=== PATIENT | female | born 1980 | race Caucasian/White ===

== ENCOUNTER 2016-11-19 16:32 | Emergency (ER) | payer OTHER ==
[~2016-11-19] VITALS: Ht 160 cm; Wt 66.7 kg
[~2016-11-19 16:32] MED LIST: NORCO 325 MG-51 TAB PO
[2016-11-19 16:35] VITALS: BP 129/84
[2016-11-19] MEDS ORDERED: HYDROCODON-ACE1 EAC2 PO (17:27)
[2016-11-19] MEDS ORDERED: BACTRIM DS TAB1 EACH PO (17:27)
--- NOTE | 2016-11-19 17:28 | ED GI/GU/ABDOMINAL COMPLAINT ---
History of Present Illness General Chief Complaint: General Adult Stated Complaint: PT IS HAVING BLADDER PAIN Source: patient Exam Limitations: no limitations Vital Signs & Intake/Output Vital Signs & Intake/Output Vital Signs Date Time Temp Pulse Resp B/P Pulse O2 O2 Flow FiO2 Ox Delivery Rate 11/19 1635 97.2 90 18 129/84 98 Room Air Allergies Coded Allergies: NO KNOWN ALLERGIES (02/06/15) Reconcile Medications Acetaminophen/Hydrocodone Bi ([place] 325 MG-5 MG) 1 TAB TAB 1 TAB PO Q6HR PRN PAIN Hydrocodone/Acetaminophen (Hydrocodon-Acetaminophen 5-325) 5 MG-325 MG TABLET 1-2 TAB PO Q4-6 PRN PRN pain Sulfamethoxazole/Trimethoprim (Bactrim Ds Tablet) 800 MG-160 MG TABLET 1 TAB PO BID uti Triage Note: PT COMPLAINS OF LOW PELVIC BLADDER PAIN AND PAIN WITH URINATION X 2 DAYS Triage Nurses Notes Reviewed? yes ? n Is pt currently ? No Onset: Abrupt Duration: day(s): (few), constant, continues in ED Timing: recent history Quality/Severity: pressure Radiation: no radiation Activities at Onset: none Sexually Active: No No Modifying Factors: none HPI: 36-year-old female comes into emergency room with pressure over her lower abdomen as well as increased frequency of urination. Denies any burning. Patient reports that she's had some malaise. Denies any back pain or vomiting. Some urgency. Denies any decrease in appetite. Symptoms begun on for the past 3 days. Patient reports that she has not been drinking a lot of water recently. (ASHWINI CHAVARRIA) Past History Travel History Traveled to [place] past 21 day No Medical History Any Pertinent Medical History? 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 No (ASHWINI CHAVARRIA) Review of Systems Review of Systems Constitutional: Reports: no symptoms. EENTM: Reports: no symptoms. Respiratory: Reports: no symptoms. Cardiovascular: Reports: no symptoms. GI: Reports: no symptoms. Genitourinary: Reports: see HPI. Musculoskeletal: Reports: no symptoms. Skin: Reports: no symptoms. Neurological/Psychological: Reports: no symptoms. Hematologic/Endocrine: Reports: no symptoms. Immunologic/Allergic: Reports: no symptoms. All Other Systems: Reviewed and Negative (ASHWINI CHAVARRIA) Physical Exam Physical Exam General Appearance: well developed/nourished, no apparent distress, alert Head: atraumatic, normal appearance Eyes: Bilateral: normal appearance. Ears, Nose, Throat, Mouth: hearing grossly normal, moist mucous membrane Neck: normal inspection, full range of motion Respiratory: normal breath sounds, no respiratory distress Cardiovascular: regular rate/rhythm Gastrointestinal: soft, suprapbic pressure Back: normal inspection Extremities: normal range of motion Neurologic/Psych: awake, alert, oriented x 3, normal gait, normal mood/affect Skin: intact, normal color Core Measures ACS in differential dx? No Severe Sepsis Present: No Septic Shock Present: No (ASHWINI CHAVARRIA) Progress Differential Diagnosis: appendicitis, colon cancer, cholecystitis, ectopic , gastritis, kidney stone, ovarian cyst, ovarian torsion, pancreatitis, PID/cervicitis, peptic ulcer, PUD/GERD, perforated viscous, threatened AB, UTI/ pyelo Plan of Care: Orders Procedure Date/time Status URINE 11/19 1637 Complete URINALYSIS 11/19 1637 Complete Laboratory Tests 11/19/16 1640: Urine Color ORANG H, Urine Clarity HAZY H, Urine pH 6.0, Ur Specific [place] 1.025, Urine Bilirubin POS@ICTO H, Ur Microscopic SEDIMENT EXAMINED, Urine RBC 50-75 H, Urine WBC > 75 H, Ur Epithelial Cells RARE, Urine Bacteria FEW H, Urine Hemoglobin LARGE H, Urine Glucose 100 H, Urine Test NEGATIVE Initial ED EKG: none Comments: 11/19/2016 5:46:11 PM Patient clinically looks well. Nontoxic-appearing. In no apparent distress. Resting comfortably in room. No evidence of pyelonephritis. Patient has symptoms of lung, kidney UTI. Started on Bactrim. Continue to use Pyridium as needed. Return if any fever vomiting back pain or right lower quadrant pain. Negative McBurney's point on exam. No suspicion for appendicitis at this time. (ASHWINI CHAVARRIA) Departure Departure Disposition: HOME OR SELF CARE Condition: Stable Clinical Impression Primary Impression: UTI (urinary tract infection) Referrals: TANIA BARNARD,ANGIE Singh (PCP/Family) Additional Instructions: Take Bactrim and Vicodin as prescribed. Rest. Drink plenty of fluids. Return if any concerns worsening symptoms. Please go over all results of today's visit with your primary care doctor. Contact your primary care doctor to let them know you were here in the emergency room. There may be nonspecific findings which may not be related to your visit today here in the emergency room but may require further evaluation and chronic monitoring by your primary care doctor. If you had a laceration today the chance of foreign body always remains. You should follow-up with your primary care doctor for recheck in 3-5 days for a wound check. If you had an x-ray done there is a chance that a fracture could have been missed on initial read and you should follow-up with your primary care doctor for repeat x-rays if symptoms persist. If your blood pressure was elevated here in the emergency room please have rechecked by her primary care doctor within the next 48 hours by your primary care doctor. If you were prescribed a narcotic here in the emergency room or any type of controlled substances you're not allowed to drive while taking this medication or operate any type of heavy machinery. Narcotics can make you feel lightheaded dizziness nausea and can cause constipation. You may need to pick pack worker a stool softener. Thank you for choosing [facility] emergency room. Please return to the emergency room immediately if you have any other concerns worsening of symptoms. Departure Forms: Customer Survey General Discharge Information Prescriptions: Current Visit Scripts Sulfamethoxazole/Trimethoprim (Bactrim Ds Tablet) 1 TAB PO BID #14 TAB Hydrocodone/Acetaminophen (Hydrocodon-Acetaminophen 5-325) 1-2 TAB PO Q4-6 PRN PRN pain #15 TAB (ASHWINI CHAVARRIA) PA/ICU TECH Co-Sign Statement Statement: ED Attending supervision documentation- [] I saw and evaluated the patient. I have also reviewed all the pertinent lab results and diagnostic results. I agree with the findings and the plan of care as documented in the PA's/ICU TECH's documentation. x I have reviewed the ED Record and agree with the PA's/ICU TECH's documentation. [] Additions or exceptions (if any) to the PAs/ICU TECH's note and plan are summarized below: [] (IFEOMA BARNARD,WALTER)
== END 2016-11-19 17:34 ==
LOC: ERH 16:32
DX: N39.0 Urinary tract infection, site not specified (principal)
CPT/HCPCS: 81001; 81025

== ENCOUNTER → 2016-12-20 | Day surgery (SDC) | payer OTHER ==
[~2016-12-20] VITALS: Ht 160 cm; Wt 66.2 kg
[~2016-12-20] MED LIST changes: +BACTRIM DS TAB1 EACH PO; +HYDROCODON-ACE1 EAC2 PO
--- NOTE | 2016-12-20 13:53 | History & Physical Pre-Op ---
General Information and HPI History of Present Illness: 36yo with Mirena IUD unable to remove in office admitted for D&C hysteroscopy and IUD removal and insertion of Liletta IUD. Allergies/Medications Allergies: Coded Allergies: No Known Allergies (12/20/16) Home Med list Acetaminophen/Hydrocodone Bi ([place] 325 MG-5 MG) 1 TAB TAB 1 TAB PO Q6HR PRN PAIN Hydrocodone/Acetaminophen (Hydrocodon-Acetaminophen 5-325) 5 MG-325 MG TABLET 1-2 TAB PO Q4-6 PRN PRN pain Sulfamethoxazole/Trimethoprim (Bactrim Ds Tablet) 800 MG-160 MG TABLET 1 TAB PO BID uti Past History Medical History Neurological: NONE EENT: NONE Cardiovascular: NONE Respiratory: NONE Gastrointestinal: NONE Hepatic: NONE Renal: NONE Musculoskeletal: NONE Psychiatric: NONE Endocrine: NONE Blood Disorders: NONE 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 EENTM: Reports: no symptoms. Cardiovascular: Reports: no symptoms. Respiratory: Reports: no symptoms. GI: Reports: no symptoms. Genitourinary: Reports: no symptoms. Musculoskeletal: Reports: no symptoms. Skin: Reports: no symptoms. Neurological/Psychological: Reports: no symptoms. Hematologic/Endocrine: Reports: no symptoms. Immunologic/Allergic: Reports: no symptoms. All Other Systems: Reviewed and Negative Exam & Diagnostic Data Last 24 Hrs of Vital Signs/I&O Intake & Output 12/20 1600 12/20 0800 12/20 0000 Intake Total Output Total Balance Patient 146 lb Weight Physical Exam: HEENT: NCAT Chest: CTAB CV: nl S1S2 Abd: soft, NTND Pelvic: deferred Ext: no C/C/E Assessment/Plan Assessment/Plan: impacted IUD D&C hysteroscopy, removal of IUD and insertion of new IUD As Ranked By This Provider Problem List: 1. IUD mechanical complication
--- NOTE | 2016-12-23 17:36 | Operative Report ---
Operative/Inv Procedure Report Surgery Date: 12/20/16 Name of Procedure: D&C hysteroscopy IUD removal, IUD insertion Pre-Operative Diagnosis: Impacted IUD Post-Operative Diagnosis: Same Estimated Blood Loss: scant Surgeon/Chenille Machine Operator: MELVIN WILBURN MD Anesthesia: local monitored anesthesi Operative/Procedure Note Note: The patient was brought to the operating room and placed on the OR table in the dorsal supine position. She was given adequate sedation and repositioned in modified dorsal lithotomy. She was prepped and draped in usual sterile fashion. A weighted speculum was inserted into the vagina and with the help of a Elvia retractor E single-toothed tenaculum was attached to the anterior lip of the cervix. The cervix was injected with 1% lidocaine with epinephrine 2-1/2 mL in each quadrant. An endocervical curettage was performed. Using the Hegar dilators the cervix was carefully dilated. The hysteroscope was placed into the endocervical canal and the saline was activated. Pushing the hysteroscope into the fundus of the uterus the IUD was noted to be impacted in the anterior wall of the uterus. The hysteroscope was then removed. Using the polyp forceps the IUD was grasped and removed intact. An endometrial curettage was performed. At this point the uterus was sounded to 8 cm. A light low the IUD provided by the LMSW was then inserted into the endometrial cavity. The strings were cut hemostasis was verified the instruments were removed then removed the patient was awakened sent to recovery in good condition. All needle, sponge, and instrument counts were correct at the end of the procedure 2.
== END ==
LOC: STS 07:00
DX: T83.39XA Other mechanical complication of intrauterine contraceptive device, initial encounter (principal)
CPT/HCPCS: 81025; 88305; J2250